=== PATIENT | male | born 1995 | race Two or more races ===

== ENCOUNTER 2019-07-20 18:27 | Emergency (ER) | payer SELFPAY ==
[~2019-07-20] VITALS: Ht 188 cm; Wt 102.0 kg
[2019-07-20 19:35] VITALS: BP 121/57
== END 2019-07-20 19:35 | disposition home or self-care (01) ==
LOC: ER 18:27
DX: B34.9 Viral infection, unspecified (principal)
CPT/HCPCS: 99281